=== PATIENT | male | born 1980 | race Caucasian/White ===

== ENCOUNTER 2023-11-24 07:55 | Inpatient (IN) ==
--- NOTE | 2023-11-07 15:05 | Anesthesiology Consultation ---
Date of Service November 07, 2023 Assessment & Plan (1) Encounter for pre-operative examination: Infectious disease screening: Per assessment on 11/07/23: No known infectious disease contacts or current infectious disease symptoms. No noted recent Covid positive test result. Chart Review Chart Review: Acceptable Risk for Surgery and Patient NOT seen in Pre Admission Testing History Surgery Operation Date: 11/24/23 11:45 Proposed Procedures p L5-S1 Decompression and Fusion, Hardware Removal L3-L5 - Ki Thorpe DO Height/Weight Height: 5 ft 11 in Weight: 111.13 kg Allergies Allergy/AdvReac Type Severity Reaction Status Date / Time amoxicillin Allergy Severe Anaphylaxis Verified 11/07/23 12:08 Sulfa (Sulfonamide Allergy Severe Anaphylaxis Verified 11/07/23 12:08 Antibiotics) promethazine [From Phenergan] Allergy Intermediate hyper Verified 11/07/23 12:08 Medications Home Medications Medication Instructions Recorded Confirmed Last Taken atorvastatin 20 mg tablet 20 mg PO HS 11/07/23 11/07/23 Unknown buprenorphine 7.5 mcg/hour weekly 1 patch transdermal Q7D 11/07/23 11/07/23 Unknown transdermal patch bupropion HCl 150 mg 24 hr tablet, 150 mg PO QAM 11/07/23 11/07/23 Unknown extended release celecoxib 200 mg capsule 200 mg PO QAM 11/07/23 11/07/23 Unknown cholecalciferol (vitamin D3) 25 25 mcg PO QAM 11/07/23 11/07/23 Unknown mcg (1,000 unit) tablet cyanocobalamin (vitamin B-12) 500 500 mcg PO QAM 11/07/23 11/07/23 Unknown mcg tablet levothyroxine 88 mcg tablet 88 mcg PO QAM 11/07/23 11/07/23 Unknown multivitamin 1 tab PO QAM 11/07/23 11/07/23 Unknown orlistat 120 mg capsule 120 mg PO AC 11/07/23 11/07/23 Unknown pregabalin 100 mg capsule (Lyrica) 100 mg PO BID 11/07/23 11/07/23 Unknown sertraline 100 mg tablet 100 mg PO QAM 11/07/23 11/07/23 Unknown Past Medical History Medical History Anxiety and depression Arthritis Emphysema lung History of cardiac murmur as a child Echo 02/2022: Trivial MR/TR Hyperlipidemia Hypothyroidism IBS (irritable bowel syndrome) Neuropathy RLE numbness PTSD (post-traumatic stress disorder) Sleep apnea No device Spinal stenosis Past Surgical History Surgical History History of anesthesia reaction *Been told to wake up slow d/t PTSD* History of appendectomy History of back surgery Lumbar fusion (2017) History of colonoscopy History of lumbar laminectomy 2009, [place] History of nasal surgery Sinus surgery and septoplasty History of tonsillectomy History of tooth extraction Hx of LASIK S/P insertion of spinal cord stimulator Patient advised to bring remote DOS Social History Smoking Status: Current every day smoker Smoking cigarettes per day: 15-20 cigs/day Do You Dip or Chew Tobacco: No Hx Alcohol Use: No substance use type: does not use Lab Results Anesthesia Preop Results Results Anesthesia Widget: WBC 10.08 K/ul (4.8-10.8) 11/06/23 Hgb 14.8 g/dl (14.0-18.0) 11/06/23 Hct 43.4 % (42.0-52.0) 11/06/23 Plt 264 K/uL (130-400) 11/06/23 Na 135 mmol/L (136-145) L 11/06/23 K 4.0 mmol/L (3.5-5.1) 11/06/23 Cl 104 mmol/L (98-107) 11/06/23 CO2 25 mmol/L (21-32) 11/06/23 BUN 9 mg/dl (6-23) 11/06/23 Creat 0.80 mg/dl (0.6-1.4) 11/06/23 Glucose Level 82 mg/dl (70-99(Fasting)) 11/06/23 Urine Color Yellow 11/06/23 Urine Appearance Clear (Clear) 11/06/23 Urine pH 7.0 (4.5-7.5) 11/06/23 Urine Specific [place] 1.007 (1.000-1.030) 11/06/23 Urine Protein Negative (Negative) 11/06/23 Urine Glucose (UA) Negative (Negative) 11/06/23 Urine Ketones Negative (Negative) 11/06/23 Urine Blood Negative (Negative) 11/06/23 Urine Nitrite Negative (Negative) 11/06/23 Urine Bilirubin Negative (Negative) 11/06/23 Urine Urobilinogen Negative (Negative) 11/06/23 Urine Leukocyte Esterase 1+ (Negative) H 11/06/23 Urine WBC (Auto) 0-5 /hpf (0-5) 11/06/23 Urine RBC (Auto) 0-2 /hpf (0-2) 11/06/23 Urine Hyaline Casts (Auto) 0-2 /lpf (0-2) 11/06/23 Urine Epithelial Cells (Auto) 0-2 /hpf (0-2) 11/06/23 Urine Bacteria (Auto) None Seen (None Seen) 11/06/23 Blood Type O Positive 11/06/23 Antibody Screen NEGATIVE 11/06/23 Testing Electrocardiogram Date: 11/06/23 NSR at 64bpm. Early repolarization. Chest X-Ray Date: 11/06/23 FINDINGS: Spinal stimulator is seen. The cardiomediastinal silhouette is normal. Lungs are underinflated but clear. No evidence of pleural effusion or pneu mothorax. IMPRESSION: No acute chest disease. Echocardiogram Date: 02/28/22 EF 55-60%. Trivial MR/TR. Wall motion normal.
[~2023-11-24 07:55] MED LIST: DexMEDEtomidine HCL IV 100 MCG/ML VIAL IV ONE; SUGAMMADEX SODIUM 200 MG/2 ML VIAL IV ONE
[2023-11-24] MEDS ORDERED: PROPOFOL IV EMULSION 10 MG/ML 20 ML VIAL IV ONE (08:42)
[2023-11-24] MEDS ORDERED: ONDANSETRON INJ 2 MG/ML 2 ML VIAL ONE (08:42)
[2023-11-24] MEDS ORDERED: DEXAMETHASONE SOD INJ 4 MG/ML VIAL ONE (08:42)
[2023-11-24] MEDS ORDERED: LIDOCAINE 2% 2 ML VIAL/AMP(20MG/ML) INFIL ONE (08:42)
[2023-11-24] MEDS ORDERED: fentaNYL citrate PF 100 MCG/2 ML VIAL ONE ×2 (08:42→09:59)
[2023-11-24] MEDS ORDERED: MIDAZOLAM HCL 1 MG/ML 2ML VIAL ONE (08:42)
[2023-11-24] MEDS ORDERED: ROCURONIUM BROMIDE 10 MG/ML 5 ML VIAL IV ONE (08:42)
[2023-11-24] MEDS ORDERED: GLYCOPYRROLATE 0.2 MG/ML VIAL ONE (08:42)
[2023-11-24] MEDS: LR 15ML/HR IV SCH (09:07)
[2023-11-24] MEDS: ACETAMINOPHEN 500 MG TAB PO SCH (09:07)
[2023-11-24] MEDS: dexAMETHasone**PF** 10 MG/ML VIAL IV SCH (09:08)
--- NOTE | 2023-11-24 09:11 | History & Physical Bridge Note ---
Date of Service November 24, 2023 History & Physical Bridge Note I have examined the patient, reviewed the History & Physical and in the interval since the performance of the History & Physical I have noted the following changes of clinical significance: no changes noted
--- NOTE | 2023-11-24 09:12 | History & Physical Report ---
Date of Service November 24, 2023 Assessment & Plan (1) Neurogenic claudication due to lumbar spinal stenosis: Plan: L5-S1 decompression and fusion, hardware removal L3-L5. History of Present Illness Chief Complaint: Back and leg pain Primary Care Provider: NO PCP This is a 43-year-old male presents with chronic persistent back and leg pain and failing since course of nonoperative care is here for surgical invention. Allergies Allergy/AdvReac Type Severity Reaction Status Date / Time amoxicillin Allergy Severe Anaphylaxis Verified 11/24/23 08:28 Sulfa (Sulfonamide Allergy Severe Anaphylaxis Verified 11/24/23 08:28 Antibiotics) promethazine [From Phenergan] Allergy Intermediate hyper Verified 11/24/23 08:28 Home Medications Medication Instructions Recorded Confirmed Type atorvastatin 20 mg tablet 20 mg PO HS 11/07/23 11/24/23 History buprenorphine 7.5 mcg/hour weekly 1 patch transdermal Q7D 11/07/23 11/24/23 History transdermal patch bupropion HCl 150 mg 24 hr tablet, 150 mg PO QAM 11/07/23 11/24/23 History extended release celecoxib 200 mg capsule 200 mg PO QAM 11/07/23 11/24/23 History cholecalciferol (vitamin D3) 25 25 mcg PO QAM 11/07/23 11/24/23 History mcg (1,000 unit) tablet cyanocobalamin (vitamin B-12) 500 500 mcg PO QAM 11/07/23 11/24/23 History mcg tablet levothyroxine 88 mcg tablet 88 mcg PO QAM 11/07/23 11/24/23 History multivitamin 1 tab PO QAM 11/07/23 11/24/23 History pregabalin 100 mg capsule (Lyrica) 100 mg PO BID 11/07/23 11/24/23 History sertraline 100 mg tablet 100 mg PO QAM 11/07/23 11/24/23 History Past Med/Surg History Problem List (Updated 11/24/23 @ 09:11 by Ki Thorpe DO) Neurogenic claudication due to lumbar spinal stenosis Encounter for pre-operative examination Medical History Anxiety and depression Arthritis Emphysema lung History of cardiac murmur as a child Echo 02/2022: Trivial MR/TR Hyperlipidemia Hypothyroidism IBS (irritable bowel syndrome) Neuropathy RLE numbness PTSD (post-traumatic stress disorder) Sleep apnea No device Spinal stenosis Surgical History History of anesthesia reaction *Been told to wake up slow d/t PTSD* History of appendectomy History of back surgery Lumbar fusion (2017) History of colonoscopy History of lumbar laminectomy 2009, [place] History of nasal surgery Sinus surgery and septoplasty History of tonsillectomy History of tooth extraction Hx of LASIK S/P insertion of spinal cord stimulator Patient advised to bring remote DOS Social History Smoking Status: Current every day smoker Tobacco Type: Cigarettes Cigarettes Per Day: 15-20 cigs/day; Second Hand Exposure: Yes ( smokes); Do You Dip or Chew Tobacco: No; Hx Alcohol Use: No Preferred Language: Nepali Photocopying Machine Operator Required: No Beliefs That Will Affect Care: None Current Living Situation: Spouse Feels Safe at Home: Yes Safety Concerns: Feels Safe At This Time Assistive Devices: Cane, Denture - Upper and Denture - Lower Physical Exam Physical Exam: Patient is alert and oriented heart regular in rhythm Lungs clear Results & Data Results & Data Vital Signs (Past 12 Hours) Vital Signs Temp Pulse Resp BP Pulse Ox O2 Del Method 11/24/23 08:35 36.5 C 67 20 121/79 95 Room Air
[2023-11-24] MEDS ORDERED: KETAMINE HCL 10MG/ML SYR ONE (09:28)
[2023-11-24] MEDS: CLINDAMYCIN/D5W 900 MG/50 ML BAG IV SCH (09:38)
[2023-11-24] MEDS: LR 60ML/HR IV SCH (09:42)
[2023-11-24] MEDS: GABAPENTIN 900 MG DOSE PO SCH (09:42)
[2023-11-24] MEDS: CeleBREX 200 MG CAP PO SCH (09:42)
[2023-11-24] MEDS ORDERED: HYDROmorphone INJ 1 MG/ML SYRINGE IV PRN (09:58)
[2023-11-24] MEDS ORDERED: ePHEDrine sulfate 50 MG/ML AMP IV PRN (09:58)
[2023-11-24] MEDS ORDERED: ATROPINE SULFATE 0.1 MG/ML 10ML SYR IV PRN (09:58)
[2023-11-24] MEDS ORDERED: ONDANSETRON INJ 2 MG/ML 2 ML VIAL IV PRN ×2 (09:58→14:26)
[2023-11-24] MEDS: ceFAZolin 330 MG/ML 1 GM VIAL ONE (10:28)
[2023-11-24] MEDS: BUPIVACAINE/EPINEPHRINE 0.25% 1:200,000 30 ML VIAL ONE (11:42)
[2023-11-24] MEDS: FLOSEAL HEMOSTATIC MATRIX 10ML TOP ONE (11:42)
--- NOTE | 2023-11-24 11:59 | Operative Report ---
Post Operative Report Pre & Post Diagnosis Operation Date: 11/24/23 09:35 Pre-Op Diagnosis: Neurogenic claudication due to lumbar spinal stenosis Post-Op Diagnosis: Neurogenic claudication due to lumbar spinal stenosis I identified the patient and participated in the time-out.: Yes Procedure Operation Date: 11/24/23 09:35 Actual Procedures #1 removal of posterior instrumentation L3-L5. #2 exploration of fusion L3-L5. #3 lumbar decompression bilateral medial facetectomies and foraminotomies L5-S1. #4 posterior spinal fusion L5-S1. #5 placement posterior instrumentation L3- S1. #6 interbody fusion L5-S1. #7 placement spiral 13 x 26 mm x 2 at L5-S1. #8 placement locally harvested morselized autograft in the posterior gutters. #9 placement infuse collagen sponge combined with Koros in the posterior gutters and catalyst bone graft interbody space. Surgeon Ki Thorpe, DO Workers Compensation Claims Adjuster Tricia Chiu Estimated Blood Loss 300 Findings See Below The patient is 5 foot 11 weighing over 110 kg with a BMI in excess of 33. Patient's body habitus did contribute to significant technical difficulty requiring our deepest retractors and longer instruments in order to perform his procedure. This at least 50% increased operative time. Specimens None Indications This is a 43-year-old male presents above-mentioned diagnosis after failed course of nonoperative care is here for surgical invention. Description of Procedure Patient was met with identified informed consent obtained. Patient was then taken to the operative suite underwent patient placed in prone position on the Marquis table on top of the Ariel frame. All bony prominences well-padded eyes inspected to ensure no external pressure placed upon the. This point the lumbar spine was prepped and draped in normal sterile fashion. Sharp dissection with the assistance of Bovie cautery form down to and exposing the instrumentation at L3-L4 and L5 as well as the remaining lamina transverse processes of L5 and the sacral ala bilaterally. And then proceeded to move the hardware bilaterally explored the fusion mass noting it to be mature and intact. Then performed a complete laminectomy of L5 including bilateral medial facetectomies and foraminotomies addressing severe subarticular and foraminal stenosis. Pedicle screws were then placed at L3 L4-5 and S1 levels bilaterally with assistance of fluoroscopy and the properly sized justina placed. Beginning with the right transforaminal region at L5-S1 discectomy was performed endplates guarded to subcortical bleeding bone and a 13 x 26 mm spiral cage filled with callus bone graft tapped in position. Then proceeded to the left transforaminal region of L5-S1. The discectomy performed endplates guided to subcortical bleeding bone and a second 13 x 26 mm spiral cage filled with callus bone graft tapped in position. The rods were then compressed locked in final position bilaterally. The transverse processes of L5 and the sacral ala burred to subcortical bleeding bone. Infuse collagen sponge, with Koros and local autograft placed in the posterior lateral gutters. 15 round MYESHA drain inserted. The incision was then closed with 1 Vicryl in the fascia 2-0 Vicryl subcutaneously and 4 Monocryl for final skin closure. Steri-Strips and sterile dressing placed. Patient waken taken to PACU in stable condition. Please note spinal cord monitoring was utilized at the procedure no changes noted. Lastly Tricia Chiu was present at the entire procedure involved in patient positioning complex portion of the surgery and fashion closure. I attest to the content of the Intraoperative Record and any orders documented therein. Any exceptions are noted below.
--- NOTE | 2023-11-24 12:09 | Fluoroscopy Report ---
FL lumbar spine 2-3V CLINICAL HISTORY: L5-S1 DFI COMPARISON STUDY: None. FLUOROSCOPY TIME: 15 seconds. Ka, r: 15.16 mGy FLUOROSCOPIC IMAGES: 2 FINDINGS: Fluoroscopy was provided during L5-S1 decompression with interbody spacer placement. Revisi on lumbar spine surgery was performed. Multilevel posterior decompression is noted. Bilateral pedicle screw fusion from L3 through S1 is intact. IMPRESSION: Fluoroscopy provided for hardware removal, L5-S1 discectomy and revision lumbosacral fus ion, as above. ACT 112: Negative or not required by law. Electronically signed by: Luis Eduardo Sears M.D. 11/24/2023 12:07 PM
[2023-11-24] MEDS: fentaNYL citrate PF 100 MCG/2 ML VIAL IV PRN (12:30)
--- NOTE | 2023-11-24 13:12 | Anesthesiology Progress Note ---
Date of Service November 24, 2023 Anesthesia Post Procedure Vital Signs Vital Signs: Temp Pulse Pulse Resp BP BP Pulse Ox 11/24/23 13:05 85 12 121/79 95 11/24/23 12:55 88 12 128/79 95 11/24/23 12:45 92 H 14 124/86 94 11/24/23 12:35 88 10 L 143/97 H 96 11/24/23 12:25 92 H 15 140/88 91 11/24/23 12:17 36.8 C 101 H 23 148/100 H 97 11/24/23 08:35 36.5 C 67 20 121/79 95 O2 Del Method O2 Flow Rate 11/24/23 13:05 Oxymask 4 11/24/23 12:55 Oxymask 4 11/24/23 12:45 Oxymask 5 11/24/23 12:35 Oxymask 5 11/24/23 12:25 Oxymask 5 11/24/23 12:17 Oxymask 5 11/24/23 08:35 Room Air Pain Intensity Lower Back: Pain Intensity: 8 Bilateral Leg: Pain Intensity: 4 Transfer of Care Handoff Completed per policy Notes Mental Status: alert / awake / arousable and participated in evaluation Patient Amnestic to Procedure: Yes Nausea / Vomiting: adequately controlled Pain: adequately controlled Airway Patency, RR, SpO2: stable & adequate BP & HR: stable & adequate Hydration State: stable & adequate Anesthetic Complications: no major complications apparent and Pt Satisfied with anesthetic care
[2023-11-24] MEDS ORDERED: LORazepam 0.5 MG TAB PO PRN (14:26)
[2023-11-24] MEDS ORDERED: DO NOT ADMINISTER PNEUMOCOCCAL VACCINE PRN (14:26)
[2023-11-24] MEDS ORDERED: diphenhydrAMINE Capsule 25 MG CAP PO PRN (14:26)
[2023-11-24] MEDS ORDERED: hydrOXYzine HCl 25 MG TAB PO PRN (14:26)
[2023-11-24] MEDS ORDERED: HYDROmorphone INJ 0.5 MG/0.5 ML SYR IV PRN (14:26)
[2023-11-24] MEDS ORDERED: ONDANSETRON 4 MG OD TAB PO PRN (14:26)
[2023-11-24] MEDS ORDERED: MAGNESIUM HYDROXIDE SUSP 30 ML UDC PO PRN (14:26)
[2023-11-24] MEDS ORDERED: SOD PHOSPHATE/SOD BIPHOSPHATE ENEMA 132 ML BTL PR PRN (14:26)
[2023-11-24] MEDS ORDERED: ALUMINUM/MAGNESIUM SUSP 30 ML UDC PO PRN (14:26)
[2023-11-24] MEDS ORDERED: LORazepam 0.5 MG in SYRINGE 0.25 ML IV PRN (14:26)
[2023-11-24] MEDS ORDERED: FAMOTIDINE 20 MG TAB PO PRN (14:26)
[2023-11-24] MEDS ORDERED: ACETAMINOPHEN 1,000 MG/100 ML VIAL IV PRN (14:26)
[2023-11-24] MEDS ORDERED: bisacodyL 10 MG SUPP PR PRN (14:26)
[2023-11-24] MEDS ORDERED: NALOXONE HCL 0.4 MG/1 ML VIAL/CARP IV PRN (14:26)
[2023-11-24] MEDS ORDERED: METOCLOPRAMIDE HCL INJ 5 MG/ML 2 ML VIAL IV PRN (14:26)
[2023-11-24] MEDS ORDERED: DO NOT ADMINISTER FLU VACCINE PRN (14:26)
[2023-11-24] MEDS ORDERED: Nursing to Pharmacy Communication SCH (14:30)
[2023-11-24] MEDS: HYDROmorphone INJ 1 MG/ML SYRINGE IV PRN (14:48)
[2023-11-24] MEDS: LACTATED RINGER'S 1,000 ML IV SCH (14:56)
[2023-11-24] MEDS: CHECK BUPRENORPHINE PATCH SCH (16:18)
--- NOTE | 2023-11-24 17:15 | Consultation ---
Date of Consultation November 24, 2023 Assessment & Plan (1) Neurogenic claudication due to lumbar spinal stenosis: (2) S/P lumbar spine operation: Lester Whatley is a 43y/o M with PMHx of hypothyroidism, PTSD/anxiety/depression, hyperlipidemia, IBS and other problems listed below who is s/p L5-S1 decompression and fusion, hardware removal L3-L5 w/ Dr. Thorpe. We were consulted on this patient for post-operative medical management. POD#0 EBL: 300mL -Activity and wound care orders as per ortho. -Pain control with bowel regimen, PT evaluation. -Monitor H/H for acute blood loss anemia and transfuse blood products PRN. -Can continue SENIOR SYSTEMS ANALYST pregabalin, vit D, vit B12 and multivitamin per ortho. -Hold SENIOR SYSTEMS ANALYST celecoxib for now per ortho. (3) Anxiety and depression: (4) PTSD (post-traumatic stress disorder): -Continue sertraline, bupropion (5) Hypothyroidism: -Continue levothyroxine (6) Tobacco use disorder: -Continue bupropion -Nicotine patch ordered per patient's preference (7) Hyperlipidemia: -Continue atorvastatin DVT Prophylaxis: SCDs Code Status: Full Code PCP: NO PCP Dispo: Admitted in Med/Surg Patient seen in collaboration with Dr. Asencio. Please see addendum. I spent a total of 75 minutes coordinating, documenting, and providing care for this patient excluding time spent in the performance of separately billed services. This included personally reviewing all current laboratories and imaging studies, medical reconciliation, outpatient chart review and discussion with specialists. This chart was completed in part utilizing Speech Voice Recognition Software. Grammatical errors, random word insertions, pronoun errors, and incomplete sentences are an occasional consequence of this system due to software limitations, ambient noise, and hardware issues. Any formal questions or concerns about the content, text, or information contained within the body of this dictation should be directly addressed to the provider for clarification. Supervising Physician Co-Signing Physician Notes I have seen and discussed the case with the collaborating advanced practitioner. I agree with the above H&P. I have reviewed and confirmed the patients medical history, the findings on physical examination, and the patients diagnosis and treatment plan with Renetta LI and agree with the information documented. In short, Mr. Whatley is a 43y/o M with PMHx of hypothyroidism, PTSD/anxiety/depression, hyperlipidemia, IBS and other problems listed below who is s/p L5-S1 decompression and fusion, hardware removal L3-L5 w/ Dr. Thorpe. Consult for comanagement. Denies any new concerns. GENERAL APPEARANCE: AxOx4, generally well-appearing male no acute distress. HEENT: NC, AT. MMM. EOMI, clear conjunctiva, NECK: Supple without lymphadenopathy. HEART: Normal rate and regular rhythm, normal S1/S1, no m/r/g LUNGS: CTAB, moving air well. No crackles or wheezes are heard. ABDOMEN: Soft, nontender, nondistended with good bowel sounds heard. EXTREMITIES: Without cyanosis, clubbing or edema. NEUROLOGICAL: Grossly nonfocal. Alert and oriented, moving all 4 extremities. CN not formally tested but appear grossly intact Skin: Warm and dry without any rash. #Neurogenic claudication s/p decompression/fusion POD 0 pain management per primary CBC in am rest of plan as above I spent a total of 15 minutes coordinating, documenting, and providing care for this patient excluding time spent in the performance of separately billed services. All of the aforementioned completed outside of collaborating with the assigned advanced practitioner for a full treatment plan. I have reviewed the advanced practitioner's documentation, and I agree with, and take responsibility for the plan of care History of Present Illness Requesting Physician: Ki Thorpe DO Reason for Consultation: Post-Op Medical Management Attending Physician: Ki Thorpe DO History of Present Illness Lester Whatley is a 43y/o M with PMHx of hypothyroidism, PTSD/anxiety/depression, hyperlipidemia, IBS and other problems listed below who is s/p L5-S1 decompression and fusion, hardware removal L3-L5 w/ Dr. Thorpe. We were consulted on this patient for post-operative medical management. History obtained from patient, and associated operative records. Patient seen at bedside. Currently reporting 6/10 pain in his lower back and R hip that radiates down his R leg. He is eating dinner, and has a good urine output from his Stoll catheter. Would like his Stoll catheter to be removed to soon as possible. Has not yet been moved out of bed. States he feels like he "has to move in order to help with the pain." Endorses some mild discomfort resting in bed. Denies any chest pain or SOB. No abdominal pain or N/V. Has not had a bowel movement since his operation. Would like a nicotine patch at this time, smokes approximately 1 pack/day. Otherwise, no other complaints at this time. Allergies Allergy/AdvReac Type Severity Reaction Status Date / Time amoxicillin Allergy Severe Anaphylaxis Verified 11/24/23 08:28 Sulfa (Sulfonamide Allergy Severe Anaphylaxis Verified 11/24/23 08:28 Antibiotics) promethazine [From Phenergan] Allergy Intermediate hyper Verified 11/24/23 08:28 Home Medications Medication Instructions Recorded Confirmed Type atorvastatin 20 mg tablet 20 mg PO HS 11/07/23 11/24/23 History buprenorphine 7.5 mcg/hour weekly 1 patch transdermal Q7D 11/07/23 11/24/23 History transdermal patch bupropion HCl 150 mg 24 hr tablet, 150 mg PO QAM 11/07/23 11/24/23 History extended release celecoxib 200 mg capsule 200 mg PO QAM 11/07/23 11/24/23 History cholecalciferol (vitamin D3) 25 25 mcg PO QAM 11/07/23 11/24/23 History mcg (1,000 unit) tablet cyanocobalamin (vitamin B-12) 500 500 mcg PO QAM 11/07/23 11/24/23 History mcg tablet levothyroxine 88 mcg tablet 88 mcg PO QAM 11/07/23 11/24/23 History multivitamin 1 tab PO QAM 11/07/23 11/24/23 History pregabalin 100 mg capsule (Lyrica) 100 mg PO BID 11/07/23 11/24/23 History sertraline 100 mg tablet 100 mg PO QAM 11/07/23 11/24/23 History Patient History Medical History Spinal stenosis Arthritis IBS (irritable bowel syndrome) Neuropathy RLE numbness History of cardiac murmur as a child Echo 02/2022: Trivial MR/TR Emphysema lung Sleep apnea No device Surgical History S/P insertion of spinal cord stimulator Patient advised to bring remote DOS History of anesthesia reaction *Been told to wake up slow d/t PTSD* History of lumbar laminectomy 2010, [place] History of back surgery Lumbar fusion (2017) History of colonoscopy History of appendectomy History of tonsillectomy History of tooth extraction History of nasal surgery Sinus surgery and septoplasty Hx of LASIK Social History Smoking Status: Current every day smoker Tobacco Type: Cigarettes Cigarettes Per Day: 15-20 cigs/day; Second Hand Exposure: Yes ( smokes); Do You Dip or Chew Tobacco: No; Hx Alcohol Use: No Preferred Language: Welsh Senior Research Consultant Required: No Beliefs That Will Affect Care: None Current Living Situation: Spouse Feels Safe at Home: Yes Safety Concerns: Feels Safe At This Time Assistive Devices: Cane, Denture - Upper and Denture - Lower Review of Systems Review of Systems: At least ten systems reviewed and negative, except as noted in the HPI. Physical Exam Physical Exam: General Appearance: Sitting up, eating his dinner. No acute distress, doesn't appear overtly uncomfortable. Head: Normocephalic, atraumatic. Eyes: Normal inspection, PERRL, conjunctivae normal, anicteric sclerae. ENT: External ear and nose normal, oropharynx normal. Neck: Normal visual inspection, trachea midline, no thyromegaly. Respiratory: Normal respiratory effort, lungs clear to auscultation, no wheeze, rales, rhonchi. No accessory muscle use. Cardiovascular: Regular rate, rhythm, no murmur, normal peripheral pulses, no BLE edema. Vessels: No JVD. Chest: Normal inspection of chest. Abdomen/GI: Normal bowel sounds, soft, nontender, no hepatosplenomegaly. Extremities/Musculoskeletal: No cyanosis or clubbing, did not attempt to move his lower extremities. Neurologic: PERRL, EOMI, accommodation nl, no face palsy, no dysarthria, CN's II-XI not formally tested by appear intact bilaterally. Psychiatric: A+Ox3, euthymic affect. Skin: No rashes, normal color, warm/dry. Results & Data Vital Signs (Past 12 Hours) Vital Signs Temp Pulse Pulse Pulse Resp BP BP 11/24/23 16:17 36.5 C 89 16 116/77 11/24/23 15:15 36.8 C 88 16 99/64 L 11/24/23 14:45 36.9 C 97 H 16 107/71 11/24/23 14:15 36.3 C L 94 H 18 123/78 11/24/23 13:45 99 H 14 125/85 11/24/23 13:35 36.6 C 86 12 128/80 11/24/23 13:25 89 16 111/80 11/24/23 13:15 83 16 124/76 11/24/23 13:05 85 12 121/79 11/24/23 12:55 88 12 128/79 11/24/23 12:45 92 H 14 124/86 11/24/23 12:35 88 10 L 143/97 H 11/24/23 12:25 92 H 15 140/88 11/24/23 12:17 36.8 C 101 H 23 148/100 H 11/24/23 08:35 36.5 C 67 20 121/79 Pulse Ox O2 Del Method O2 Flow Rate 11/24/23 16:17 96 Nasal Cannula 1 11/24/23 15:15 95 Nasal Cannula 2 11/24/23 14:45 91 Room Air 11/24/23 14:15 94 Room Air 11/24/23 13:45 91 Room Air 11/24/23 13:35 95 Oxymask 2 11/24/23 13:25 95 Oxymask 2 11/24/23 13:15 95 Oxymask 4 11/24/23 13:05 95 Oxymask 4 11/24/23 12:55 95 Oxymask 4 11/24/23 12:45 94 Oxymask 5 11/24/23 12:35 96 Oxymask 5 11/24/23 12:25 91 Oxymask 5 11/24/23 12:17 97 Oxymask 5 11/24/23 08:35 95 Room Air Diagnostic Findings Lumbar Spine X-Ray 11/24/23 11:25 FL lumbar spine 2-3V CLINICAL HISTORY: L5-S1 DFI COMPARISON STUDY: None. FLUOROSCOPY TIME: 15 seconds. Nhung r: 15.16 mGy FLUOROSCOPIC IMAGES: 2 FINDINGS: Fluoroscopy was provided during L5-S1 decompression with interbody spacer placement. Revision lumbar spine surgery was performed. Multilevel posterior decompression is noted. Bilateral pedicle screw fusion from L3 through S1 is intact. IMPRESSION: Fluoroscopy provided for hardware removal, L5-S1 discectomy and revision lumbosacral fusion, as above. ACT 112: Negative or not required by law. Electronically signed by: Luis Eduardo Sears M.D. 11/24/2023 12:07 PM Medications Administered Hydromorphone HCl (Hydromorphone Inj 1 Mg/Ml Syringe) 1 mg IV Q3H PRN PRN Reason: SEVERE Pain (Scale 7,8,9,10) Stop: 12/08/23 14:25 Last Admin: 11/24/23 14:48 Dose: 1 mg Documented By: STARR Lactated Ringer's (Lr) 1,000 mls @ 150 mls/hr IV .Q6H40M SHARYN Stop: 12/24/23 14:25 Last Admin: 11/24/23 14:56 Dose: 150 mls/hr Documented By: STARR Clindamycin Phosphate (Cleocin/D5w) 600 mg in 50 mls @ 100 mls/hr IV Q8H SHARYN Stop: 11/25/23 01:59 Last Infusion: 11/24/23 18:07 Dose: Infused Documented By: Admin: 11/24/23 17:34 Dose: 100 mls/hr Documented By: STARR Osuna (Check Buprenorphine Patch) 1 each N/A QS SHARYN Stop: 12/24/23 15:59 Last Admin: 11/24/23 16:18 Dose: 1 each Documented By: STARR Osuna (Order Awaiting Action: Butrans Patch) 1 each N/A QS SHARYN Stop: 12/24/23 15:59 Last Admin: 11/24/23 16:18 Dose: Not Given Documented By: STARR Nicotine (Nicotine 21 Mg/24 Hr Tdsy) 1 patch TD QAM SHARYN Stop: 12/24/23 17:14 Last Admin: 11/24/23 18:05 Dose: 1 patch Documented By: STARR Oxycodone HCl (Oxycodone Hcl Ir 5 Mg Tab (Immediate Release)) 5 - 10 mg PO Q4H PRN PRN Reason: Pain & Pre PT Stop: 12/08/23 14:25 Last Admin: 11/24/23 17:40 Dose: 10 mg Documented By: STARR Discontinued Medications Acetaminophen (Acetaminophen 500 Mg Tab) 1,000 mg PO PREOP SHARYN Stop: 11/24/23 18:00 Last Admin: 11/24/23 09:07 Dose: 1,000 mg Documented By: JVU Bupivacaine HCl/Epinephrine Bitart (Bupivacaine/Epinephrine 0.25% 1:200,000 30 Ml Vial) Confirm Administered Dose 30 ml .ROUTE .[facility] Stop: 11/24/23 09:31 Last Admin: 11/24/23 11:42 Dose: 25 ml Documented By: FAY Cefazolin Sodium (Cefazolin 330 Mg/Ml 1 Gm Vial) Confirm Administered Dose 990 mg .ROUTE .[facility] ONE Stop: 11/24/23 09:32 Last Admin: 11/24/23 10:28 Dose: Not Given Documented By: REJI Celecoxib (Celebrex 200 Mg Cap) 200 mg PO PREOP [facility] Stop: 11/24/23 18:00 Last Admin: 11/24/23 09:42 Dose: Not Given Documented By: TREY Dexamethasone Sodium Phosphate (DexamethasonePf 10 Mg/Ml Vial) 10 mg IV PREOP SHARYN Stop: 11/24/23 18:00 Last Admin: 11/24/23 09:08 Dose: 10 mg Documented By: TREY Fentanyl Citrate (Fentanyl Citrate Pf 100 Mcg/2 Ml Vial) 50 mcg IV Q5M PRN PRN Reason: PACU Use Only-Pain Stop: 11/24/23 17:58 Last Admin: 11/24/23 12:35 Dose: 50 mcg Documented By: Admin: 11/24/23 12:30 Dose: 50 mcg Documented By: JAGJIT Gabapentin (Gabapentin 900 Mg Dose) 900 mg PO PREOP SHARYN Stop: 11/24/23 18:00 Last Admin: 11/24/23 09:42 Dose: Not Given Documented By: TREY Lactated Ringer's (Lr) 1,000 mls @ 15 mls/hr IV .Q24H [facility] Stop: 11/25/23 05:59 Last Infusion: 11/24/23 09:35 Dose: Infused Documented By: Admin: 11/24/23 09:07 Dose: 15 mls/hr Documented By: TREY Lactated Ringer's (Lr) 1,000 mls @ 60 mls/hr IV .[id number] [facility] Stop: 11/24/23 22:39 Last Admin: 11/24/23 09:42 Dose: Not Given Documented By: TREY Clindamycin Phosphate (Cleocin/D5w) 900 mg in 50 mls @ 100 mls/hr IV PREOP SHARYN; Protocol Stop: 11/24/23 18:00 Last Infusion: 11/24/23 14:28 Dose: Infused Documented By: Admin: 11/24/23 09:38 Dose: 100 mls/hr Documented By: [id number] Miscellaneous ( Floseal Hemostatic Matrix 10ml) 10 ml TOP ONCE ONE Stop: 11/24/23 10:29 Last Admin: 11/24/23 11:42 Dose: 12 ml Documented By: GMAmy (5) Hypothyroidism Hypothyroidism type: unspecified Qualified Code(s): E03.9 - Hypothyroidism, unspecified (7) Hyperlipidemia Hyperlipidemia type: unspecified Qualified Code(s): E78.5 - Hyperlipidemia, unspecified
[2023-11-24] MEDS: CLINDAMYCIN/D5W 600 MG/50 ML BAG IV SCH (17:34)
[2023-11-24] MEDS: oxyCODONE HCL IR 5 MG TAB (IMMEDIATE RELEASE) PO PRN (17:40)
[2023-11-24] MEDS: NICOTINE 21 MG/24 HR TDSY TD SCH (18:05)
[2023-11-24] MEDS: DOCUSATE SODIUM/SENNA 50/8.6MG TAB PO SCH (20:45)
[2023-11-24] MEDS: PREGABALIN 100 MG CAP PO SCH (20:45)
[2023-11-24] MEDS: ATORVASTATIN 20 MG TAB PO SCH (20:45)
[2023-11-24] MEDS: ACETAMINOPHEN 500 MG TAB PO PRN (20:46)
[2023-11-25] MEDS: POLYETHYLENE (MIRALAX) 17 GM PACK PO SCH (05:57)
[2023-11-25] MEDS: LEVOTHYROXINE SODIUM 88 MCG TABLET PO SCH (05:57)
[2023-11-25 06:44] LABS: Basophils # (auto) 0.02 K/uL (0.00-0.20); Basophils % (auto) 0.1 %; Eosinophils # (auto) 0.01 K/uL (0.00-0.50); Eosinophils % (auto) 0.1 %; Hematocrit (blood only) 36.9 % (42.0-52.0); Hemoglobin 12.8 g/dl (14.0-18.0); Immature Granulocytes # (auto) 0.16 K/uL (0.01-0.20); Immature Granulocytes % (auto) 0.9 %; Lymphocytes # (auto) 1.94 K/uL (1.20-3.40); Lymphocytes % (auto) 10.6 %; Mean Corpuscular Hemoglobin 29.2 pg (25.0-34.0); Mean Corpuscular Hgb Conc 34.7 g/dL (32.0-36.0); Mean Corpuscular Volume 84.1 fL (80.0-100.0); Mean Platelet Volume 9.9 fL (9.4-12.4); Monocytes # (auto) 1.27 K/uL (0.11-0.59); Monocytes % (auto) 6.9 %; Neutrophils # (auto) 14.96 K/uL (1.40-6.50); Neutrophils % (auto) 81.4 %; Platelet Count 254 K/uL (130-400); RDW Coefficient of Variation 13.5 % (11.5-14.5); RDW Standard Deviation 41.6 fL (36.4-46.3); Red Blood Count 4.39 M/uL (4.70-6.10); White Blood Count 18.36 K/ul (4.8-10.8)
[2023-11-25 07:10] LABS: BUN Creatinine Ratio 13.3 (10-20); Creatinine Clr Calc Pharmacy 163.6 ml/min; Est GFR (African American) 132.1 ml/min; Est GFR (Non-African American) 113.9 ml/min; Potassium 4.1 mmol/L (3.5-5.1)
[2023-11-25] MEDS: dexAMETHasone 6 MG in SYRINGE 0 ML IV SCH (07:37)
[2023-11-25] MEDS ORDERED: methylPREDNISolone 4 MG TAB, 6 DAY TAPER PO SCH (08:00)
--- NOTE | 2023-11-25 08:17 | Orthopedic Progress Note ---
Date of Service November 25, 2023 Assessment & Plan (1) Neurogenic claudication due to lumbar spinal stenosis: Plan: This time we will continue physical therapy monitor his MYESHA output anticipate discharge over the next few days. Admission and Anticipated Discharge Date Admission Date: November 24, 2023 Subjective Back pain is controlled. Radicular symptoms resolved. He is noting some numbness in an S1 distribution bilaterally. The pain is markedly improved from his preoperative status. Physical Exam Physical Exam: On exam the patient is sitting up in bed. Appears comfortable. Is excellent strength detailed testing lower extremities. Sensory is intact. Results & Data Vital Signs (Past 12 Hours) Vital Signs Temp Pulse Resp BP Pulse Ox O2 Del Method 11/25/23 07:35 36.6 C 91 H 18 102/63 93 Room Air 11/25/23 04:00 36.6 C 86 16 110/68 94 Room Air 11/25/23 00:00 36.5 C 97 H 16 96/54 L 93 Room Air Queries Orthopedic Spine Obesity: Yes
[2023-11-25] MEDS: MULTIVITAMIN TAB PO SCH (08:49)
[2023-11-25] MEDS: buPROPion XL 150 MG TABCR PO SCH (08:49)
[2023-11-25] MEDS: CHOLECALCIFEROL 25 MCG (1000 UNITS) TAB PO SCH (08:49)
[2023-11-25] MEDS: SERTRALINE HCL 100 MG TABLET PO SCH (08:49)
[2023-11-25] MEDS: CYANOCOBALAMIN (B-12) 500 MCG TABLET PO SCH (08:49)
--- NOTE | 2023-11-25 15:14 | Hospitalist Progress Note ---
Date of Service November 25, 2023 Assessment & Plan (1) Neurogenic claudication due to lumbar spinal stenosis: (2) S/P lumbar spine operation: Plan: Lester Whatley is a 43y/o M with PMHx of hypothyroidism, PTSD/anxiety/depression, hyperlipidemia, IBS and other problems listed below who is s/p L5-S1 decompression and fusion, hardware removal L3-L5 w/ Dr. Thorpe. We were consulted on this patient for post-operative medical management. Status post L5-S1 decompression and fusion on 11/24/2023 EBL: 300mL -Activity and wound care orders as per ortho. -Pain control with bowel regimen, PT evaluation. -Monitor H/H for acute blood loss anemia and transfuse blood products PRN. -Can continue CREW CHIEF pregabalin, vit D, vit B12 and multivitamin per ortho. -Hold CREW CHIEF celecoxib for now per ortho. -Complains to have numbness involving the upper thighs bilaterally, bowel has not moved yet -Pain is reasonably controlled -Management as per orthospine (3) Anxiety and depression: Plan: No acute issues (4) PTSD (post-traumatic stress disorder): Plan: -Continue sertraline, bupropion (5) Hypothyroidism: Plan: -Continue levothyroxine (6) Tobacco use disorder: Plan: -Continue bupropion -Nicotine patch ordered per patient's preference (7) Hyperlipidemia: Plan: -Continue atorvastatin DVT Prophylaxis: SCDs Code Status: Full Code PCP: NO PCP Dispo: Admitted in Med/Surg Admission and Anticipated Discharge Date Admission Date: November 24, 2023 Subjective 11/25/2023 The patient was seen and examined in medical floor He has been complaining of numbness involving the bilateral thighs and legs Denies any significant pain at the back Does not have any other symptoms Review of Systems Review of Systems: All systems reviewed and are unremarkable except as noted below Physical Exam Physical Exam: Sitting on a chair without any acute distress Constitutional: well developed, well nourished and + ill appearing Eyes: PERRL, conjunctivae normal, anicteric sclerae ENMT: external ear and nose normal, oropharynx normal Neck: trachea midline, no thyromegaly Respiratory: no respiratory distress Auscultation: lungs clear to auscultation bilaterally Cardiovascular: Rate/Rhythm: regular rate and regular rhythm; not tachycardic Heart Sounds: normal S1 and normal S2; no murmur Extremities: no edema Gastrointestinal (Abdomen): Inspection/Auscultation: normal bowel sounds; abdomen not distended Percussion/Palpation: abdomen soft; abdomen nontender Musculoskeletal: Back pain status post back surgery. No acute arthritis involving any of the joints Neurologic: normal touch/pain/proprioception and moves all extremities; no focal motor deficits Psychiatric: A+Ox3, euthymic affect Lymphatic: no cervical or axillary lymphadenopathy Results & Data Results & Data Vital Signs (Past 12 Hours) Vital Signs Temp Pulse Resp BP BP Pulse Ox O2 Del Method 11/25/23 12:13 36.9 C 83 16 122/72 97 Room Air 11/25/23 07:35 36.6 C 91 H 18 102/63 93 Room Air 11/25/23 04:00 36.6 C 86 16 110/68 94 Room Air Laboratory Results Short CBC 11/25/23 Range/Units 06:12 WBC 18.36 H (4.8-10.8) K/ul Hgb 12.8 L (14.0-18.0) g/dl Hct 36.9 L (42.0-52.0) % Plt Count 254 (130-400) K/uL BMP 11/25/23 06:12 Sodium 138 Potassium 4.1 Chloride 105 Carbon Dioxide 27 BUN 10 Creatinine 0.75 Glucose 123 H Calcium 9.0 Medications Administered Current Inpatient Medications Acetaminophen (Acetaminophen 500 Mg Tab) 1,000 mg PO Q8H PRN PRN Reason: MILD Pain Scale 1,2,3 & Pre PT Stop: 12/24/23 14:25 Last Admin: 11/24/23 20:46 Dose: 1,000 mg Al Hydrox/Mg Hydrox/Simethicone (Aluminum/Magnesium Susp 30 Ml Udc) 30 ml PO Q6H PRN PRN Reason: Dyspepsia Stop: 12/24/23 14:25 Atorvastatin Calcium (Atorvastatin 20 Mg Tab) 20 mg PO HS SHARYN Stop: 12/24/23 20:59 Last Admin: 11/24/23 20:45 Dose: 20 mg Bisacodyl (Bisacodyl 10 Mg Supp) 10 mg TN DAILY PRN PRN Reason: Constipation Stop: 12/24/23 14:25 Bupropion HCl (Bupropion Xl 150 Mg Tabcr) 150 mg PO QAM SHARYN Stop: 12/25/23 08:59 Last Admin: 11/25/23 08:49 Dose: 150 mg Cyanocobalamin (Cyanocobalamin (B-12) 500 Mcg Tablet) 500 mcg PO QAM [facility] Stop: 12/25/23 08:59 Last Admin: 11/25/23 08:49 Dose: 500 mcg Diphenhydramine HCl (Diphenhydramine Capsule 25 Mg Cap) 25 mg PO Q6H PRN PRN Reason: Allergic Rhinitis/Insomnia Stop: 12/24/23 14:25 Famotidine (Famotidine 20 Mg Tab) 20 mg PO Q12H PRN PRN Reason: Dyspepsia Stop: 12/24/23 14:25 Hydromorphone HCl (Hydromorphone Inj 0.5 Mg/0.5 Ml Syr) 0.5 mg IV Q3H PRN PRN Reason: MODERATE Pain (Scale 4,5,6) & Pre PT Stop: 12/08/23 14:25 Hydromorphone HCl (Hydromorphone Inj 1 Mg/Ml Syringe) 1 mg IV Q3H PRN PRN Reason: SEVERE Pain (Scale 7,8,9,10) Stop: 12/08/23 14:25 Last Admin: 11/24/23 14:48 Dose: 1 mg Hydroxyzine HCl (Hydroxyzine Hcl 25 Mg Tab) 25 mg PO Q8H PRN PRN Reason: Anxiety Stop: 12/24/23 14:25 Lorazepam 0.5 mg/ Syringe 0.5 mls @ 2 mls/min IV Q8H PRN; Protocol PRN Reason: Sedation/Anxiety Stop: 12/24/23 14:25 Dexamethasone 6 mg/ Syringe 1.5 mls @ 1 mls/min IV DAILY SHARYN Stop: 11/27/23 09:02 Last Admin: 11/25/23 07:37 Dose: 1 mls/min Influenza Virus Vaccine Quadrival (Do Not Administer Flu Vaccine) 1 each N/A PRN PRN PRN Reason: Notification Stop: 12/24/23 14:25 Levothyroxine Sodium (Levothyroxine Sodium 88 Mcg Tablet) 88 mcg PO DAILYBB [facility] Stop: 12/25/23 06:29 Last Admin: 11/25/23 05:57 Dose: 88 mcg Lorazepam (Lorazepam 0.5 Mg Tab) 0.5 mg PO Q8H PRN PRN Reason: Sedation/Anxiety Stop: 12/24/23 14:25 Magnesium Hydroxide (Magnesium Hydroxide Susp 30 Ml Udc) 30 ml PO Q24H PRN PRN Reason: Constipation Stop: 12/24/23 14:25 Metoclopramide HCl (Metoclopramide Hcl Inj 5 Mg/Ml 2 Ml Vial) 10 mg IV Q6H PRN PRN Reason: Nausea &/or Vomiting Stop: 12/24/23 14:25 Miscellaneous (Check Buprenorphine Patch) 1 each N/A QS [facility] Stop: 12/24/23 15:59 Last Admin: 11/25/23 07:37 Dose: 1 each Miscellaneous (Remove & Waste Butrans Patch 1 Ea Ea) 1 each N/A Morrison@0900 [facility] Stop: 12/30/23 08:59 Miscellaneous (Order Awaiting Action: Butrans Patch) 1 each N/A QS [facility] Stop: 12/24/23 15:59 Last Admin: 11/25/23 07:37 Dose: Not Given Miscellaneous (Remove Nicoderm Patch) 1 each N/A DAILY@0859 [facility] Stop: 12/25/23 08:58 Last Admin: 11/25/23 08:49 Dose: 1 each Multivitamins (Multivitamin Tab) 1 tab PO QAM [facility] Stop: 12/25/23 08:59 Last Admin: 11/25/23 08:49 Dose: 1 tab Naloxone HCl (Naloxone Hcl 0.4 Mg/1 Ml Vial/Carp) 0.1 mg IV Q5M PRN PRN Reason: Oversedation/Resp depression Stop: 12/24/23 14:25 Nicotine (Nicotine 21 Mg/24 Hr Tdsy) 1 patch TD QAM [facility] Stop: 12/24/23 17:14 Last Admin: 11/25/23 08:50 Dose: 1 patch Ondansetron HCl (Ondansetron Inj 2 Mg/Ml 2 Ml Vial) 4 mg IV Q6H PRN PRN Reason: Nausea &/or Vomiting Stop: 12/24/23 14:25 Ondansetron HCl (Ondansetron 4 Mg Od Tab) 4 mg PO Q6H PRN PRN Reason: Nausea Stop: 12/24/23 14:25 Oxycodone HCl (Oxycodone Hcl Ir 5 Mg Tab (Immediate Release)) 5 - 10 mg PO Q4H PRN PRN Reason: Pain & Pre PT Stop: 12/08/23 14:25 Last Admin: 11/25/23 08:59 Dose: 10 mg Pneumococcal Polyvalent Vaccine (Do Not Administer Pneumococcal Vaccine) 1 each N/A PRN PRN PRN Reason: Notification Stop: 12/24/23 14:25 Polyethylene Glycol (Polyethylene (Miralax) 17 Gm Pack) 17 gm PO Q6 SHARYN Stop: 12/25/23 05:59 Last Admin: 11/25/23 12:09 Dose: Not Given Pregabalin (Pregabalin 100 Mg Cap) 100 mg PO BID SHARYN Stop: 12/24/23 20:59 Last Admin: 11/25/23 08:49 Dose: 100 mg Senna/Docusate Sodium (Docusate Sodium/Senna 50/8.6mg Tab) 2 tab PO HS [facility] Stop: 12/24/23 20:59 Last Admin: 11/24/23 20:45 Dose: 2 tab Sertraline HCl (Sertraline Hcl 100 Mg Tablet) 100 mg PO QAM SHARYN Stop: 12/25/23 08:59 Last Admin: 11/25/23 08:49 Dose: 100 mg Sodium Biphosphate/Sodium Phosphate (Sod Phosphate/Sod Biphosphate Enema 132 Ml Btl) 132 ml TN ONE PRN PRN Reason: Constipation Stop: 12/24/23 14:25 Tramadol HCl (Tramadol Hcl 50 Mg Tablet) 50 - 100 mg PO Q4H PRN PRN Reason: Moderate-Severe pain & Pre PT Stop: 12/24/23 14:25 Vitamin D (Cholecalciferol 25 Mcg (1000 Units) Tab) 25 mcg PO QAM SHARYN Stop: 12/25/23 08:59 Last Admin: 11/25/23 08:49 Dose: 25 mcg (5) Hypothyroidism Hypothyroidism type: unspecified Qualified Code(s): E03.9 - Hypothyroidism, unspecified (7) Hyperlipidemia Hyperlipidemia type: unspecified Qualified Code(s): E78.5 - Hyperlipidemia, unspecified
[2023-11-25] MEDS: traMADol HCL 50 MG TABLET PO PRN (22:49)
[2023-11-26 07:29] LABS: Basophils # (auto) 0.03 K/uL (0.00-0.20); Basophils % (auto) 0.2 %; Eosinophils # (auto) 0.15 K/uL (0.00-0.50); Eosinophils % (auto) 1.2 %; Hematocrit (blood only) 36.1 % (42.0-52.0); Hemoglobin 12.1 g/dl (14.0-18.0); Immature Granulocytes # (auto) 0.08 K/uL (0.01-0.20); Immature Granulocytes % (auto) 0.6 %; Lymphocytes # (auto) 3.63 K/uL (1.20-3.40); Lymphocytes % (auto) 28.1 %; Mean Corpuscular Hemoglobin 28.8 pg (25.0-34.0); Mean Corpuscular Hgb Conc 33.5 g/dL (32.0-36.0); Monocytes # (auto) 0.95 K/uL (0.11-0.59); Monocytes % (auto) 7.3 %; Neutrophils # (auto) 8.09 K/uL (1.40-6.50); Neutrophils % (auto) 62.6 %; Platelet Count 217 K/uL (130-400); RDW Standard Deviation 43.3 fL (36.4-46.3); White Blood Count 12.93 K/ul (4.8-10.8)
[2023-11-26 07:47] LABS: BUN Creatinine Ratio 14.6 (10-20); Calcium 8.6 mg/dl (8.6-10.3); Creatinine Clr Calc Pharmacy 149.7 ml/min; Est GFR (African American) 127.3 ml/min; Est GFR (Non-African American) 109.8 ml/min; Potassium 3.5 mmol/L (3.5-5.1)
--- NOTE | 2023-11-26 09:56 | Hospitalist Progress Note ---
Date of Service November 26, 2023 Assessment & Plan (1) Neurogenic claudication due to lumbar spinal stenosis: (2) S/P lumbar spine operation: Plan: Lester Whatley is a 43y/o M with PMHx of hypothyroidism, PTSD/anxiety/depression, hyperlipidemia, IBS and other problems listed below who is s/p L5-S1 decompression and fusion, hardware removal L3-L5 w/ Dr. Thorpe. We were consulted on this patient for post-operative medical management. Neurogenic claudication due to lumbar spinal stenosis S/P L5-S1 decompression and fusion on 11/24/2023 Acute blood loss anemia Activity, wound care, DVT prophylaxis per primary team Pain control Continue bowel regimen to prevent constipation No indications for blood transfusion currently Continue PT OT Advised to follow-up with PCP in 1 week upon discharge (3) Anxiety and depression: Plan: No acute issues (4) PTSD (post-traumatic stress disorder): Plan: -Continue sertraline, bupropion (5) Hypothyroidism: Plan: -Continue levothyroxine (6) Tobacco use disorder: Plan: -Continue bupropion -Nicotine patch ordered per patient's preference (7) Hyperlipidemia: Plan: -Continue atorvastatin DVT Px As per Ortho Code Status: Full Code Admission and Anticipated Discharge Date Admission Date: November 24, 2023 Subjective Patient is seen and examined at bedside Back pain is controlled with medications Lower extremity numbness is improving postsurgery Family at bedside Denies any chest pain, dyspnea, dizziness, nausea, vomiting, abdominal pain Review of Systems Review of Systems: All systems reviewed & are unremarkable except as noted in Subjective Physical Exam Physical Exam: Physical Exam: Vitals signs as noted above General Appearance:Moderately built and nourished, no apparent distress Head: normocephalic, Atraumatic Eyes: normal inspection, EOMI Neck: supple, Trachea midline Respiratory/Chest: Normal breath sounds, CTA, No accessory muscle use Cardiovascular: S1, S2, No murmur Abdomen/GI:Soft, Non tender, Bowel sounds present Back: Surgical site in dressing Extremities/Musculoskeletal:normal inspection, no edema Neurologic/Psych:AAOX3, grossly no focal neurological deficits Skin: normal color, warm Results & Data Results & Data Vital Signs (Past 12 Hours) Vital Signs Temp Pulse Resp BP Pulse Ox O2 Del Method 11/26/23 07:15 36.5 C 80 16 125/76 96 Room Air Laboratory Results Short CBC 11/26/23 Range/Units 06:51 WBC 12.93 H (4.8-10.8) K/ul Hgb 12.1 L (14.0-18.0) g/dl Hct 36.1 L (42.0-52.0) % Plt Count 217 (130-400) K/uL BMP 11/26/23 06:51 Sodium 138 Potassium 3.5 Chloride 104 Carbon Dioxide 29 BUN 12 Creatinine 0.82 Glucose 122 H Calcium 8.6 (5) Hypothyroidism Hypothyroidism type: unspecified Qualified Code(s): E03.9 - Hypothyroidism, unspecified (7) Hyperlipidemia Hyperlipidemia type: unspecified Qualified Code(s): E78.5 - Hyperlipidemia, unspecified
--- NOTE | 2023-11-26 11:54 | Discharge Summary ---
Date of Service November 26, 2023 Admission HPI Per Admitting Provider This is a 43-year-old male presents with chronic persistent back and leg pain and failing since course of nonoperative care is here for surgical invention. Admission Exam (Per Admitting) Constitutional WD/WN, vitals as above Eyes normal visual whatley by confrontation ENMT external ear and nose normal, oropharynx normal Neck normal visual inspection Respiratory normal respiratory effort Cardiovascular Extremities: normal capillary refill Gastrointestinal (Abdomen) Inspection/Auscultation: abdomen normal to inspection Musculoskeletal Spine: + pain with thoraco-lumbar ROM Extremities: extremities normal to inspection and strength 5/5 throughout Skin no rashes, warm and dry Neurologic normal touch/pain/proprioception and moves all extremities Psychiatric A+Ox3, euthymic affect Discharge Data Consultations 11/24/23 14:26 Consult Hospitalist Routine Procedures Performed Operation Date: 11/24/23 09:35 Actual Procedures p L5-S1 Decompression and Fusion, (Not Applicable) - Ki Thorpe DO s Hardware Removal L3-L5(Not Applicable) - Ki Thorpe DO Hospital Course (1) Neurogenic claudication due to lumbar spinal stenosis: Lester is being discharged home on postoperative day 2 status post hardware removal L3-5, decompression instrumented fusion L3-S1. He had an uneventful postoperative hospital course. Lab values have been stable. Pain is being controlled. He is making progress daily and physical therapy. Discharge Instructions ACTIVITY RECOMMENDATIONS: SELF CARE INSTRUCTIONS AFTER THORACIC/LUMBAR FUSIONS 1. You may walk to your tolerance. It is good exercise for your legs and back. Expect some back and intermittent leg aches and pains. 2. You may perform "counter-top" level activities (make a sandwich, nickie with a project, etc.). 3. No bending or lifting of more than 10 pounds or back twisting of any nature (roll like a log when turning in bed). 4. You may ride in a car for 20-30 minutes at a time. No driving until after your first visit with your doctor. 5. Frequent changes of position and restricting sitting to 30 minutes at a time will help limit the amount of back spasms and stiffness you may experience. 6. You may discontinue the use of ambulatory aids (cane, crutches, etc.) once your strength and confidence allow. 7. You may manual lathe machinist the shower and let water strike your incision when you arrive home at least once daily. Do not take a tub bath, sit in a hot tub or go into a swimming pool until after your first recheck in the office. SPECIAL CARE INSTRUCTIONS: VERY IMPORTANT TO READ AND REVIEW A. Your surgical incision has been closed with a cosmetic suture under the skin that will dissolve in about 6 weeks. In 14 days, you can use a pair of clean scissors and cut the suture that is left outside of the skin at the ends of your incision. 1. The small skin tapes can be removed 7 days after surgery if they have not fallen off by that point. 2. You may keep the wound open to air as much as possible to promote healing after post-op day number 5 unless told otherwise by your doctor. 3. If you think the wound looks like it is becoming infected (redness or worsening drainage) and/or you are experiencing fever, chill or worsening back pain and muscle spasms, contact the office so that we may evaluate you as soon as possible. B. Complications are uncommon, but please contact us if you have any signs or symptoms of: 1. wound infection (fever higher than 102.5 degrees F, redness, separation of wound, drainage, or increasing pain from the incision) 2. blood clots in legs (pain, swelling, redness and warmth in legs) 3. urinary tract infection (fever higher than 102.5 degrees F, burning upon urination or increased frequency of urination) 4. nerve problems (inability to walk on your toes or heels, numbness, loss of bowel or bladder control) 5. any other symptoms that concern you C. Please call the office at if you have any concerns or questions about your operation or recovery. D. No smoking! Smoking drastically decreases the chance of a solid fusion. E. Do not take any anti-inflammatory medications (Indocin, Advil, Motrin, Aspirin, Naprosyn, etc.) as these may inhibit the chance of a solid fusion. Tylenol is okay to take for pain. MANAGING PAIN AFTER SPINAL SURGERY 1. Narcotic medication is intended for short-term use and will be provided for surgical pain. Surgical pain usually lasts for a period of 4-6 weeks. Narcotic medication includes Percocet, Vicodin, Darvocet, Tylenol #3 or Lortab. 2. Longer-term pain is more appropriately treated with non-narcotic medication such as Tylenol ES. 3. Muscle spasm is not appropriately treated with narcotics. Muscle relaxers such as Soma, Flexeril or Skelaxin can be used along with Tylenol ES. 4. Remember that we all live with some "aches and pains". This is not unusual or uncommon after an injury or as we get older. a. Back pain is expected and may include muscle spasms for 4 to 6 weeks after surgery. The pain should gradually improve. If the pain worsens for no apparent reason, please contact the office. b. Intermittent leg pain may also be experienced and should not be concerned about unless it worsens for no apparent reason. If so, please contact the office. 5. We will provide appropriate medication within the normal guidelines of their prescribed use. We will also be very cautious and aware of potential abuse and extended duration of patients' medication needs. a. Pain medications are for your comfort and to assist with sleep and rest so that the tissue can heal. They are not provided in order to return to normal activity and should not be used through the day. To do so or worsening pain at night can result from ongoing tissue damage and development of tolerance to the prescribed medicine. 6. Please allow 2-3 days to process refills. Prescriptions will not be mailed but must be picked up at the office. FOLLOW UP VISIT: Keep your scheduled follow-up appointment. Any questions, please call the office at .
== END 2023-11-26 13:06 | disposition home or self-care (01) | DRG 455 ==
LOC: ASU 07:55 → 3W 12:05